=== PATIENT | female | born 1970 | race Asian ===

== ENCOUNTER 2019-07-18 12:54 | Outpatient (CLI) | payer BC | END 2019-07-18 21:37 | disposition home or self-care (01) | LOC: MAMMO 12:54 | DX: Z12.31 Encounter for screening mammogram for malignant neoplasm of breast (principal) ==

== ENCOUNTER 2020-05-17 17:23 | Emergency (ER) | payer BC ==
[~2020-05-17] VITALS: Ht 170.2 cm; Wt 136.1 kg
[2020-05-17 17:40] LABS: PLATELET COUNT 306 K/uL (152-353)
[2020-05-17 17:52] LABS: POTASSIUM 3.7 mmol/L (3.6-5.2)
== END 2020-05-17 18:30 | disposition home or self-care (01) ==
LOC: ED 17:23
PROVIDERS: Emergency Medicine Emergency Medical Services
DX: T67.5XXA Heat exhaustion, unspecified, initial encounter (principal); Y92.89 Other specified places as the place of occurrence of the external cause; R55 Syncope and collapse
CPT/HCPCS: 80053; 82550; 85027; 93005; 96360; 96375; 99284; J2405

== ENCOUNTER 2020-11-25 08:23 | Outpatient (CLI) | payer BC | END 2020-11-25 21:40 | disposition home or self-care (01) | LOC: MAMMO 08:23 | PROVIDERS: ATTEND Obstetrics & Gynecology | DX: Z12.31 Encounter for screening mammogram for malignant neoplasm of breast (principal) ==

== ENCOUNTER 2022-01-29 08:54 | Outpatient (CLI) | payer BC | END 2022-01-29 19:32 | disposition home or self-care (01) | LOC: MAMMO 08:54 | PROVIDERS: ATTEND Obstetrics & Gynecology | DX: Z12.31 Encounter for screening mammogram for malignant neoplasm of breast (principal) ==

== ENCOUNTER 2022-08-10 13:48 | Outpatient (CLI) | payer BC | END 2022-08-10 21:09 | disposition home or self-care (01) | LOC: CT 13:48 | PROVIDERS: ATTEND Internal Medicine | DX: M51.36 Other intervertebral disc degeneration, lumbar region (principal) ==

== ENCOUNTER 2022-11-23 16:05 | Emergency (ER) | payer BC ==
[~2022-11-23] VITALS: Ht 170.2 cm; Wt 136.1 kg
[2022-11-23 16:14] VITALS: TEMP 97
[2022-11-23 18:07] VITALS: BP 142/79
== END 2022-11-23 18:07 | disposition home or self-care (01) ==
LOC: ED 16:05
DX: B34.9 Viral infection, unspecified (principal); U07.1 COVID-19
CPT/HCPCS: 87502; 87635; 87651; 99283; U0003